=== PATIENT | female | born 1980 | race African-American/Black ===

== ENCOUNTER 2017-08-27 10:17 | Emergency (ER) | payer MEDICAID ==
[~2017-08-27] VITALS: Ht 167.6 cm; Wt 60.0 kg
[2017-08-27 10:18] VITALS: BP 114/78; PULSE 100; RESP 18; TEMP 99.1; O2SAT 100
[2017-08-27] MEDS ORDERED: SODIUM CHLORIDE 0.9% FLUSH 10 ML FLUSH IV FLUSH PRN (12:30)
[2017-08-27] MEDS ORDERED: MORPHINE SULFATE 4 MG/ML INJ IV PUSH ONE (12:30)
[2017-08-27] MEDS ORDERED: ONDANSETRON HCL 4 MG/2 ML VIAL IVP ONE (12:30)
[2017-08-27 13:23] LABS: BLOOD, URINE NEG (NEG); COMMENT (UR) CULT NOT INDICATED; CULTURE IF INDICATED CULT NOT INDICATED; GLUCOSE,URINE NEG (NEG); KETONE, URINE NEG (NEG); MUCUS URINE FEW /lpf (OCC); NITRITE,URINE NEG (NEG); PH, URINE 7.5 (5.0-8.5); SQUAMOUS EPITHELIAL CELL URINE 1 /hpf (0-5); URINE COLOR YELLOW (YELLW/STRAW)
[2017-08-27 13:24] LABS: AUTOMATED NEUTROPHIL # 3.9 TH/MM3 (1.8-7.7); BASOPHIL % 0.4 % (0.0-2.0); EOSINOPHIL % 0.7 % (0.0-4.0); HEMATOCRIT 35.5 % (35.0-46.0); HEMO FLAGS DIFF FINAL; LYMPHOCYTE # 1.4 TH/MM3 (1.0-4.8); MEAN CELL VOLUME 71.5 FL (80.0-100.0); MEAN CORPUSCULAR HEMOGLOBIN 22.7 PG (27.0-34.0); MEAN CORPUSCULAR HGB CONC 31.7 % (32.0-36.0); MONO % 11.6 % (0.0-8.0); NEUT % 64.3 % (16.0-70.0); PLATELET COUNT 296 TH/MM3 (150-450); RED BLOOD COUNT 4.97 MIL/MM3 (4.00-5.30); WHITE BLOOD COUNT 6.1 TH/MM3 (4.0-11.0)
[2017-08-27] MEDS ORDERED: IOHEXOL 350 MG/ML 10 ML VIAL (for RAD DIAG) IVCONTRAST ONE (13:33)
[2017-08-27 13:36] LABS: ALT (GPT) 35 U/L (10-53); ANION GAP 9 MEQ/L (5-15); AST (GOT) 30 U/L (15-37); BICARBONATE 24.2 MEQ/L (21.0-32.0); BLOOD UREA NITROGEN 10 MG/DL (7-18); CHLORIDE 104 MEQ/L (98-107); GLOMERULAR FILTRATION RATE 94 ML/MIN (>89); POTASSIUM 3.9 MEQ/L (3.5-5.1); SODIUM (NA) 137 MEQ/L (136-145)
[2017-08-27 13:40] LABS: ALKALINE PHOSPHATASE 52 U/L (45-117); TOTAL BILIRUBIN ADULT 0.4 MG/DL (0.2-1.0)
--- NOTE | 2017-08-27 13:47 | RADRPT ---
EXAM DATE/TIME: 08/27/2017 13:16 [place] COMPARISON: No previous studies available for comparison. INDICATIONS : Diffuse abdomen pain with nausea and vomiting for three weeks. IV CONTRAST: 71 cc Omnipaque 350 (iohexol) IV ORAL CONTRAST: No oral contrast ingested. RADIATION DOSE: 6.64 CTDIvol (mGy) MEDICAL HISTORY : None SURGICAL HISTORY : Tubal ligation. ENCOUNTER: Initial ACUITY: 3 weeks PAIN SCALE: 7/10 LOCATION: Bilateral abdomen TECHNIQUE: Volumetric scanning of the abdomen and pelvis was performed. Using automated exposure control and ad justment of the mA and/or kV according to patient size, radiation dose was kept as low as reasonably achievable to obtain optimal diagnostic quality images. DICOM format image data is available electro nically for review and comparison. FINDINGS: LOWER LUNGS: The visualized lower lungs are clear. LIVER: Homogeneous density without lesion. There is no dilation of the biliary tree. No calcified gallston es. SPLEEN: Normal size without lesion. PANCREAS: Within normal limits. KIDNEYS: Normal in size and shape. There is no mass, stone or hydronephrosis. ADRENAL GLANDS: Within normal limits. VASCULAR: There is no aortic aneurysm. BOWEL/MESENTERY: The stomach, small bowel, and colon demonstrate no acute abnormality. Appendix is visualized and norm al in appearance. There is no free intraperitoneal air or fluid. ABDOMINAL WALL: Within normal limits. RETROPERITONEUM: There is no lymphadenopathy. BLADDER: No wall thickening or mass. REPRODUCTIVE: Small amount of endometrial fluid. Tubal ligation clips. INGUINAL: There is no lymphadenopathy or hernia. MUSCULOSKELETAL: Within normal limits for patient age. CONCLUSION: 1. No acute CT abnormality in the abdomen or pelvis. 2. Normal appendix. No bowel obstruction. 1. Joe Fernandes MD on August 27, 2017 at 13:40 Board Certified Radiologist. This report was verified electronically.
[2017-08-27] MEDS ORDERED: PEPT262C2 CHEW (14:38)
[2017-08-27] MEDS ORDERED: PANT20 PO (14:38)
[2017-08-27] MEDS ORDERED: BIAX500T PO (14:38)
[2017-08-27] MEDS ORDERED: AMOX500C PO (14:38)
--- NOTE | 2017-08-27 14:38 | PD ---
HPI . Epigastric pain Chief Complaint: GI Complaint Time Seen by Provider: 13:22 Travel History International Travel<30 days: No Contact w/Intl Traveler<30days: No Traveled to known affect area: No History of Present Illness HPI This patient presents with chief complaint of epigastric pain. Onset was probably a month ago. This been worse for the last week. She describes a burning sensation. It is associated with some nausea and vomiting. She states that she has been having issues with her stomach for about a year now add Prilosec, Nexium and a "pink pill." She states that these medications have been ineffective in treating her epigastric pain so she is not taking anything now. She states that she was diagnosed as having a "bacterial infection" a year ago and was treated with antibiotics. She did get better but her symptoms recurred about 3 months ago. She rates the pain 6/10. Pain is exacerbated by eating and drinking. PFSH Past Medical History Anemia: Yes High Cholesterol: Yes ?: Not Tubal Ligation: Yes Past Surgical History Other Surgery: Yes (breast augmentation) Social History Alcohol Use: No Tobacco Use: No Substance Use: No Allergies-Medications (Allergen,Severity, Reaction): Coded Allergies: aspirin (Verified Allergy, Severe, throat closing, 08/20/17) Reported Meds & Prescriptions Reported Meds & Active Scripts Active No Active Prescriptions or Reported Medications Review of Systems Except as stated in HPI: all other systems reviewed are Neg General / Constitutional: No: Fever, Chills Gastrointestinal: Positive: Nausea, Vomiting, Abdominal Pain, No: Diarrhea Genitourinary: No: Urgency, Frequency, Dysuria Physical Exam Narrative GENERAL: Awake and alert. SKIN: warm/dry. Good color and turgor. HEAD: Normocephalic. Atraumatic. EYES: Pupils equal and round. No scleral icterus. No injection or drainage. ENT: No nasal bleeding or discharge. Mucous membranes pink and moist. NECK: Trachea midline. Full range of motion without pain.. CARDIOVASCULAR: Regular rate and rhythm. Heart sounds normal. RESPIRATORY: No accessory muscle use. Clear to auscultation. Breath sounds equal bilaterally. GASTROINTESTINAL: Abdomen soft. Mild epigastric tenderness without guarding or rebound. Bowel sounds present. Nondistended. MUSCULOSKELETAL: No obvious deformities. NEUROLOGICAL: Awake and alert. No obvious cranial nerve deficits. Motor grossly within normal limits. Normal speech. PSYCHIATRIC: Appropriate mood and affect; insight and judgment normal. Data Data Last Documented VS Vital Signs Date Time Temp Pulse Resp B/P (MAP) Pulse Ox O2 Delivery O2 Flow Rate FiO2 08/27/17 10:18 99.1 100 18 114/78 (90) 100 Orders Orders Complete Blood Count With Diff (08/27/17 12:29) Comprehensive Metabolic Panel (08/27/17 12:29) Lipase (08/27/17 12:29) Urinalysis - C+S If Indicated (08/27/17 12:29) Ct Abd/Pel W Iv Contrast(Rout) (08/27/17 12:29) Iv Access Insert/Monitor (08/27/17 12:29) Morphine Inj (Morphine Inj) (08/27/17 12:30) Ondansetron Inj (Zofran Inj) (08/27/17 12:30) Sodium Chloride 0.9% Flush (Ns Flush) (08/27/17 12:30) Ed Urine Pregnancytest Poc (08/27/17 12:29) Iohexol 350 Inj (Omnipaque 350 Inj) (08/27/17 13:33) Labs Laboratory Tests Test 08/27/17 12:47 White Blood Count 6.1 TH/MM3 Red Blood Count 4.97 MIL/MM3 Hemoglobin 11.3 GM/DL Hematocrit 35.5 % Mean Corpuscular Volume 71.5 FL Mean Corpuscular Hemoglobin 22.7 PG Mean Corpuscular Hemoglobin Concent 31.7 % Red Cell Distribution Width 18.0 % Platelet Count 296 TH/MM3 Mean Platelet Volume 8.6 FL Neutrophils (%) (Auto) 64.3 % Lymphocytes (%) (Auto) 23.0 % Monocytes (%) (Auto) 11.6 % Eosinophils (%) (Auto) 0.7 % Basophils (%) (Auto) 0.4 % Neutrophils # (Auto) 3.9 TH/MM3 Lymphocytes # (Auto) 1.4 TH/MM3 Monocytes # (Auto) 0.7 TH/MM3 Eosinophils # (Auto) 0.0 TH/MM3 Basophils # (Auto) 0.0 TH/MM3 CBC Comment DIFF FINAL Differential Comment Urine Color YELLOW Urine Turbidity CLEAR Urine pH 7.5 Urine Specific [place] 1.021 Urine Protein TRACE mg/dL Urine Glucose (UA) NEG mg/dL Urine Ketones NEG mg/dL Urine Occult Blood NEG Urine Nitrite NEG Urine Bilirubin NEG Urine Urobilinogen LESS THAN 2.0 MG/DL Urine Leukocyte Esterase NEG Urine RBC 2 /hpf Urine WBC 1 /hpf Urine Squamous Epithelial Cells 1 /hpf Urine Mucus FEW /lpf Microscopic Urinalysis Comment CULT NOT INDICATED Blood Urea Nitrogen 10 MG/DL Creatinine 0.83 MG/DL Random Glucose 82 MG/DL Total Protein 8.4 GM/DL Albumin 4.1 GM/DL Calcium Level 8.8 MG/DL Alkaline Phosphatase 52 U/L Aspartate Amino Transf (AST/SGOT) 30 U/L Alanine Aminotransferase (ALT/SGPT) 35 U/L Total Bilirubin 0.4 MG/DL Sodium Level 137 MEQ/L Potassium Level 3.9 MEQ/L Chloride Level 104 MEQ/L Carbon Dioxide Level 24.2 MEQ/L Anion Gap 9 MEQ/L Estimat Glomerular Filtration Rate 94 ML/MIN Lipase 240 U/L MDM Medical Decision Making Medical Screen Exam Complete: Yes Emergency Medical Condition: Yes Medical Record Reviewed: Yes (patient was seen here on 08/20 for same. She had a complete workup including a CT scan of the abdomen which was negative. She was treated for constipation and discharged home.) Differential Diagnosis Differential diagnosis of abdominal pain includes but is not limited to gastritis, pancreatitis, hepatitis, gastroenteritis, gallbladder disease, constipation, urinary retention, UTI, peptic ulcer disease, diverticulitis or appendicitis Narrative Course This patient presents with epigastric pain. She reports previous successful treatment of epigastric pain with "triple therapy." That was about a year ago. CBC & BMP Diagram 08/27/17 12:47 Total Protein 8.4 H, Albumin 4.1, Calcium Level 8.8, Alkaline Phosphatase 52, Aspartate Amino Transf (AST/SGOT) 30, Alanine Aminotransferase (ALT/SGPT) 35, Total Bilirubin 0.4 UA is negative. Last Impressions Abdomen/Pelvis CT 08/27/17 1229 Signed Impressions: Service Date/Time: Sunday, August 27, 2017 13:16 - CONCLUSION: 1. No acute CT abnormality in the abdomen or pelvis. 2. Normal appendix. No bowel obstruction. 1. Joe Fernandes MD I will treat this patient with quadruple therapy including amoxicillin, Biaxin, a PPI and Pepto-Bismol. Diagnosis Primary Impression: Epigastric pain Referrals: oCokie Brody MD Patient Instructions: Epigastric Pain (ED), General Instructions Med/Other Pt SpecificInfo: Prescription(s) given Scripts Amoxicillin (Amoxicillin) 500 Mg Cap 1000 MG PO BID for Infection for 14 Days, #56 CAP 0 Refills Prov: Ledy Ryan MD 08/27/17 Bismuth Subsalicylate (Pepto-Bismol) 262 Mg Chew 524 MG CHEW QID Y for INDIGESTION OR UPSET STOMACH for 14 Days, TAB 0 Refills Prov: Ledy Ryan MD 08/27/17 Pantoprazole (Protonix) 20 Mg Tab 20 MG PO BID for Reflux, #30 TAB 0 Refills Prov: Ledy Ryan MD 08/27/17 Clarithromycin (Biaxin) 500 Mg Tab 500 MG PO BID for Infection for 14 Days, #28 TAB 0 Refills Prov: Ledy Ryan MD 08/27/17 Disposition: 01 DISCHARGE HOME Condition: Stable Ledy Ryan MD Aug 27, 2017 14:38
== END 2017-08-27 15:00 | disposition home or self-care (01) ==
LOC: NEPD 10:17
DX: R10.13 Epigastric pain (principal); R11.2 Nausea with vomiting, unspecified
CPT/HCPCS: 74177; 80053; 81001; 83690; 84703; 85025; 96374; 96375; 99285; J2270; J2405; Q9967